=== PATIENT | female | born 1940 ===

== ENCOUNTER 2020-06-21 12:54 | Outpatient (CLI) | payer OTHER | END 2020-06-21 12:56 | disposition home or self-care (01) | LOC: TOM 12:54 | PROVIDERS: ATTEND Urology | DX: N13.39 Other hydronephrosis (principal); N20.2 Calculus of kidney with calculus of ureter; K43.9 Ventral hernia without obstruction or gangrene; N13.1 Hydronephrosis with ureteral stricture, not elsewhere classified ==